=== PATIENT | male | born 1950 | race African-American/Black ===

== ENCOUNTER 2023-06-10 11:18 | Outpatient (CLI) | payer MEDICARE ==
--- NOTE | 2023-06-12 02:29 | Ultrasound Report ---
PROCEDURE: Soft Tissue Head or Neck INDICATIONS: MUTIPLE THYROID NODULES TECHNIQUE: Real-time scanning was performed of the thyroid gland, with image documentation. COMPARISON: None FINDINGS: Right: Thyroid lobe measures 6.0 x 2.3 x 2.1 cm, and is homogeneous in echotexture. Left: Thyroid lobe measures 5.5 x 2.3 x 1 point cm, and is homogenous in echotexture. Isthmus: 0.6 cm thick. Nodule number: One Location: Left inferior thyroid gland Size: 0.4 x 0.8 x 0.6 cm. Composition: Solid (2 points). Echogenicity: Hypoechoic (2 points). Shape: wider than tall (0 points). Margins: Smooth (0 points). Echogenic foci: None (0 points). Total points: 4 ACR TI-RADS category: TI-RADS 4: Moderately suspicious. IMPRESSION: Bilaterally enlarged thyroid gland. Left inferior 0.8 cm moderately suspicious nodule. R ecommend imaging follow-up as below. ACR TI-RADS definitions and recommendations: TI-RADS 1 (benign): 0 points. FNA not needed. TI-RADS 2 (not suspicious): 2 points. FNA not needed. TI-RADS 3 (mildly suspicious): 3 points. "FNA if 2.5 cm or larger, follow up if 1.5 cm or larger (at 1, 3, and 5 years). TI-RADS 4 (moderately suspicious): 4-6 points. "FNA if 1.5 cm or larger, follow up if 1 cm or larger (at 1, 2, 3, and 5 years). TI-RADS 5 (highly suspicious): 7 points or more. "FNA if 1 cm or larger, follow up if 0.5 cm or larger (every year for 5 years). Reviewed by: Sara Viera MD on 06/12/2023 2:27 AM PST Approved by: Sara Viera MD on 06/12/2023 2:27 AM PST Station ID: [id number]
== END 2023-06-10 11:19 | disposition home or self-care (01) ==
LOC: DI 11:18
PROVIDERS: ATTEND Physician Assistant
DX: E04.1 Nontoxic single thyroid nodule (principal)

== ENCOUNTER 2023-06-27 10:26 | Outpatient (CLI) | payer MEDICARE ==
--- NOTE | 2023-06-27 16:01 | XRAY Report ---
PROCEDURE: Lumbar Spine 2-3V INDICATIONS: LOW BACK PAIN TECHNIQUE: 3 views of the lumbar spine were acquired. COMPARISON: None. FINDINGS: Bones: 5 tyb-opn-hwzczvu vertebrae are present. There is 7.5 mm anterolisthesis of L4 on L5 and 1.3 cm anterolisthesis of L5 on S1. Mild degenerative endplate changes and bilateral facet arthrosis at L3-4 through L5-S1 levels are also seen.. No vertebral body compression fractures. No suspicious [place] lesions. There is prior bilateral total hip arthroplasty. Soft tissues: Overlying bowel gas pattern is normal. No suspicious soft tissue calcifications. 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 No acute compression fracture. Reviewed by: Juan Tirado MD on 06/27/2023 4:00 PM PST Approved by: Juan Tirado MD on 06/27/2023 4:00 PM PST Station ID: [id number]
== END 2023-06-27 10:27 | disposition home or self-care (01) ==
LOC: DI.N 10:26
PROVIDERS: ATTEND Physician Assistant
DX: M51.36 Other intervertebral disc degeneration, lumbar region (principal); M43.16 Spondylolisthesis, lumbar region

== ENCOUNTER 2023-07-21 14:56 | Outpatient (CLI) | payer MEDICARE ==
--- NOTE | 2023-07-21 15:59 | Sleep Patient Instructions ---
Sleep Center Visit Summary - Patient Visit Information Reason for Visit: Initial consult for evaluation of sleep disordered breathing and other sleep issues. - Patient Instructions Instructions Attached: Sleep Study Additional Instructions: You will be completing a sleep study, either an in-lab polysomnography (PSG) or home sleep study (HST). You will follow-up in the sleep care office after the sleep study is completed to hear the results and talk about therapy, if needed. You will be called by our office staff to schedule this appointment, but you may contact us with any questions. - Clinic Information Contact: [facility] [address] [place] [address] [email or web address] T: [phone]
--- NOTE | 2023-07-21 16:04 | SLEEP CARE CONSULTATION ---
Information from patient questionnaire entered by Lina Dickens. I have reviewed and concur with the information entered by Lina Dickens. This document represents the service I personally performed and the decisions made by me, Evy Wilkinson ARNP. History of Present Illness Service Date and Time: 07/21/2023 1456 Reason for Visit: New patient, Previously diagnosed sleep apnea Date of Onset: OVER 20YRS Usual bedtime: BETWEEN 9-10PM Time it takes to fall asleep: 10MIN Snores at night: Yes Observed to quit breathing while asleep: Yes Sleeps alone due to snoring: No Number of times waking at night: 2 Reasons for waking at night: reports: Choking, Bathroom, Other (UNKNOWN). denies: Snoring, Gasping for air Toss, Turn, or Twitch while sleeping: Yes (a little bit) Recalls having dreams: Yes Usually gets out of bed at: 8-9 AM Feels refreshed in the morning: Yes (sometimes) Morning headache: Yes (seldom; only in last couple weeks) Sleepy or fatigued during the day: Yes Ever fallen asleep while driving: Yes (drowsy driving, not frequent, seldom) Takes day naps: Yes (very seldom) Dreams during day naps: No Prior sleep studies: Yes Additional HPI information: I had the pleasure of seeing PATO CHOWDARY today regarding the possibility of him having a sleep disorder. His current complaints are snoring, observed pauses in breathing and unrefreshed sleep. He says he used to have a CPAP machine for sleep apnea many years ago, 2006?. He has not been using a PAP machine for many years. He has had people comment that he snores very loudly and keepd them up at night. He has also been told by an ex- that he stopped breathing at night too. He says he has woke up rarely with choking feeling but not gasping for air. He does not always feel rested in the morning but he rarely takes naps in the daytime. He comes in to try and improve his overall health. - Parasomnia Symptoms Ever been unable to move upon waking from sleep: No Walks in sleep: No Talks in sleep: No Ever acted out dreams in sleep: No Ever felt weak in the knees when startled or emotional: No Bothered by creepy, crawly, restless sensations in legs: No Problems with memory or concentration: Yes (sometimes memory) Subjective Initial [place] Sleepiness Scale score: 11 (07/21/23) Past Medical History Past Medical History: reports: Hypertension, Claustrophobia, Arthritis, Anxiety, GERD Social History The patient's occupation is a RE. Patient is and lives in [place]. Have you smoked in the past 12 months: No Alcohol use: Yes Alcohol amount and frequency: occasionally Caffeine use: No Family History Family history of sleep disordered breathing: Yes Family Hx Sleep Apnea: Father: Snoring, Sleep apnea - Untreated Allergies and Home Medications Known drug allergies: Yes ( LISTED) Drug allergies reviewed: Yes Home medication list reviewed: Yes Allergy and home medication list: Allergies meperidine [From Demerol] Allergy (Verified 07/21/23 15:13) strawberry Allergy (Verified 07/21/23 15:13) Home Medications Ascorbic Acid [Vitamin C] See Rx Instructions .ROUTE .COMPLEX 07/21/23 [History] Atenolol [Tenormin] See Rx Instructions .ROUTE .COMPLEX 07/21/23 [History] Celecoxib See Rx Instructions .ROUTE .COMPLEX 07/21/23 [History] Cholecalciferol (Vitamin D3) [Vitamin D3] See Rx Instructions .ROUTE .COMPLEX 07/21/23 [History] Lansoprazole [Prevacid] See Rx Instructions .ROUTE .COMPLEX 07/21/23 [History] Multivitamin See Rx Instructions .ROUTE .COMPLEX 07/21/23 [History] Om3/Dha/Epa/Cod Liver Oil/A/D3 [Cod Liver Oil Softgel] See Rx Instructions .ROUTE .COMPLEX 07/21/23 [History] Ubidecarenone [Co Q-10] See Rx Instructions .ROUTE .COMPLEX 07/21/23 [History] Vitamin B Complex See Rx Instructions .ROUTE .COMPLEX 07/21/23 [History] lisinopriL [Zestril] See Rx Instructions .ROUTE .COMPLEX 07/21/23 [History] Review of Systems Weight gain over past 5 years: 10 Weight loss over past 5 years: 35 Cardiovascular: reports: high blood pressure, leg or foot swelling Respiratory: denies: shortness of breath Gastrointestinal: reports: heartburn Urinary: reports: urgency Neurological: reports: headaches Psychiatric: reports: anxiety, claustrophobia. denies: Attention Deficit Hyperactivity Ear/Nose/Throat: reports: dry mouth/throat. denies: tonsillectomy Endocrine: reports: increased urination Musculoskeletal: reports: neck pain, back pain Immunologic: reports: allergies to food or environment Physical Exam Vital signs obtained and entered by: LINA Hdz MA Blood Pressure: 158/100 (RIGHT ARM) Cuff size: regular Heart Rate: 57 O2 Saturation: 98 Height: 6 ft 1 in Weight: 262 lb 9.6 oz Body Mass Index: 34.6 BMI Classification: Obese Neck circumference: 17.5 Mouth and throat: narrow oropharynx Soft palate: long Hard palate: normal Uvula: long, edematous Uvula visualization: 25% Mallampati Class III Tongue: enlarged in size with teeth kahn on lateral edges Tonsils: small Neck: normal w/o lymphadenopathy or thyromegaly Heart: regular rate and rhythm Lungs: clear bilaterally Impression and Plan 1. Suspected Obstructive Sleep Apnea-Hypopnea Syndrome, as previously diagnosed and suggested by a history of loud and irregular snoring, observed cessation of breath while asleep, gasping or choking in sleep, unrefreshed sleep, and excessive daytime sleepiness. Narrow oropharynx and obesity are common predisposing factors for obstructive sleep apnea-hypopnea syndrome. I recommend proceeding to polysomnography to confirm the diagnosis and to assess severity. If the patient has significant sleep disordered breathing, a manual CPAP titration study will also be performed to find the optimal treatment pressure. I informed the patient of what the sleep studies involve and after some discussion, obtained agreement to proceed. The pathophysiology of obstructive sleep apnea-hypopnea syndrome was discussed with the patient and health risks of cardiovascular and cerebrovascular disease if not treated. Risks of drowsy driving discussed in detail and patient advised to avoid long distance driving and to meat puller at the first sign of drowsiness. Patient agreed to plan. * Schedule polysomnography +- manual CPAP titration study and return in 1-2 weeks after the study to discuss result and initiate therapy. * Avoid long distance driving or driving when feeling sleepy. * Avoid alcohol, sedative and muscle relaxant around bedtime. * Attempt to lose weight. * Review instructions provided by trained office staff on how to prepare for the sleep study. * Return for follow-up after sleep study completed. Counseling Topics: Weight loss health impact Plan: PSG/HST Visit Type: In Office Time Spent with Patient (minutes): 31 Provider Statement: I spent 100% of the Face to Face Visit with the patient with greater than 50% spent counseling the patient and coordination of care.
[2023-07-21 16:07] VITALS: BP 158/100; O2SAT 98
== END 2023-07-21 14:57 | disposition home or self-care (01) ==
LOC: SC 14:56
PROVIDERS: ATTEND Nurse Practitioner Family
DX: G47.10 Hypersomnia, unspecified (principal); R06.83 Snoring; G47.8 Other sleep disorders; R06.81 Apnea, not elsewhere classified; I10 Essential (primary) hypertension; E66.9 Obesity, unspecified; Z68.34 Body mass index [BMI] 34.0-34.9, adult
CPT/HCPCS: 99203; G0463; 99212

== ENCOUNTER 2023-08-08 20:18 | Outpatient (CLI) | payer MEDICARE | END 2023-08-08 20:19 | disposition home or self-care (01) | LOC: SC 20:18 | PROVIDERS: ATTEND Nurse Practitioner Family | DX: G47.33 Obstructive sleep apnea (adult) (pediatric) (principal); I10 Essential (primary) hypertension | CPT/HCPCS: 95810 ==

== ENCOUNTER 2023-08-22 09:38 | Outpatient (CLI) | payer MEDICARE ==
--- NOTE | 2023-08-22 10:02 | Sleep Patient Instructions ---
Sleep Center Visit Summary - Patient Visit Information Reason for Visit: Sleep study follow-up - Patient Instructions Instructions Attached: CPAP Additional Instructions: You will be completing a titration sleep study in our sleep lab where you will b e sleeping with the CPAP machine on and we will be adjusting your pressures to find your optimal pressure settings. Once we have your results back, we will call you and schedule a follow up to go over the results. You will be called by our office staff to schedule your follow up, but you may contact us with any questions or issue as needed. - Clinic Information Contact: [facility] [address] [place] [address] [email or web address] T: [phone]
--- NOTE | 2023-08-22 10:07 | SLEEP CARE CONSULTATION ---
Information from patient questionnaire entered by Lina Dickens. I have reviewed and concur with the information entered by Lina Dickens. This document represents the service I personally performed and the decisions made by , Evy Wilkinson ARNP. History of Present Illness Service Date and Time: 08/22/2023 0938 Initial [place] Sleepiness Scale score: 11 (07/21/23) Current [place] Sleepiness Scale score: 6 Additional HPI information: PATO CHOWDARY returns for follow up and results of the recently performed polysomnography. The sleep study showed severe obstructive sleep apnea with an average AHI of 46.9 and zhanna oxygen saturation of 81%. I explained the pathophysiology behind obstructive sleep apnea. We then spent quite a bit of time discussing different treatment options. For mild obstructive sleep apnea, surgery and oral appliance are alternatives to nasal CPAP therapy but in moderate or severe cases, nasal CPAP is the most effective and reliable treatment. I reviewed the impact of weight changes on sleep apnea and strongly recommended losing weight. After some discussion, the patient opted to go with the nasal CPAP therapy. A manual titration study will be ordered to find optimal pressure with office adjustments. Patient counseled not drink alcohol less than 4 hours before bedtime as it can increase snoring and apnea. Patient was cautioned about risks of drowsy driving until sleepiness symptoms resolve. Patient denies drowsy driving. Sleep Study - Results Type of Sleep Study: Polysomnography (COMPLETED 08/08/23) Prior sleep studies: Yes Polysomnography/Home Sleep Study results: IMPRESSION: The quality of the study is good. The patient had reduced sleep efficiency due to prolonged awakening in the middle of the night. The sleep architecture was abnormal for sleep fragmentation and reduced amount of time spent in slow wave sleep (N3). Respiratory monitoring showed severe obstructive sleep apneahypopnea (AHI = 46.9) associated with frequent arousals, oxyhemoglobin desaturation and mild hypoxia (zhanna oxygen saturation of 81%). The respiratory events occurred independently of sleep stage and body position (supine AHI = 50.5; non-supine = 39.28). Snore was moderate to loud in intensity. There was no significant periodic leg movement of sleep. Cardiac rhythm was normal sinus rhythm without significant arrhythmia. No abnormal behavior (parasomnia) observed during the night. Allergies and Home Medications Known drug allergies: Yes (as listed) Drug allergies reviewed: Yes Home medication list reviewed: Yes (no changes) Allergy and home medication list: Allergies meperidine [From Demerol] Allergy (Verified 08/18/23 11:56) strawberry Allergy (Verified 08/18/23 11:56) Review of Systems Review of systems same as previous: Yes (no changes) Physical Exam Vital signs obtained and entered by: EVY CROCKER Blood Pressure: 150/105 (has BP meds this morning) Cuff size: regular (left arm) Heart Rate: 58 O2 Saturation: 99 Height: 6 ft 1 in Weight: 262 lb 3.2 oz Body Mass Index: 34.6 BMI Classification: Obese Impression and Plan 1. Obstructive Sleep Apnea-Hypopnea Syndrome, severe, with lowest oxygen saturation of 81%. Obviously this is the cause of the patients symptoms of unrefreshed sleep, and excessive daytime sleepiness. Positive pressure therapy could benefit hypertension, anxiety and gastric reflux. As mentioned above, the patient will be started on nasal autoCPAP therapy. A manual titration study will be completed to find optimal treatment pressure with office adjustments. Compliance guidelines also reviewed. 2. Hypoxemia, mild, with a zhanna oxygen saturation of 81% and 1.7 minutes spent under 90%. The baseline oxygen saturation was normal with an average oxygen saturation of 95%. 3. Obesity, unspecified. Currently patients BMI is 34.6. Obesity increases the risk of apnea, CPAP pressure requirements and overall health risks especially cardiovascular and diabetes. Thus patient is advised to lose weight. 4. Elevated blood pressure in patient with hypertension. His blood pressure was 150/105 taken manually. He was feeling well today. He said he took his medication this morning. He is working with his primary doctor on finding right blood pressure medication combinations to control his blood pressure. I advised him to follow up with them as needed. He voiced understanding. * Titration study * Follow up with PCP for elevated BP * Attempt to lose weight. * Avoid alcohol consumption near bedtime. * Avoid supine sleep until using CPAP. * The patient is again cautioned about driving until sleepiness completely resolves. * Return after titration study Counseling Topics: Weight loss health impact Follow up with Sleep Care in: other (after titration study) Follow up with: PCP Follow up recommended for: High blood pressure Plan: Titration study Visit Type: In Office Time Spent with Patient (minutes): 21 Provider Statement: I spent 100% of the Face to Face Visit with the patient with greater than 50% spent counseling the patient and coordination of care.
[2023-08-22 10:08] VITALS: BP 150/105; O2SAT 99
== END 2023-08-22 09:39 | disposition home or self-care (01) ==
LOC: SC 09:38
PROVIDERS: ATTEND Nurse Practitioner Family
DX: G47.33 Obstructive sleep apnea (adult) (pediatric) (principal); E66.9 Obesity, unspecified; Z68.34 Body mass index [BMI] 34.0-34.9, adult; I10 Essential (primary) hypertension
CPT/HCPCS: 99213; G0463; 99212

== ENCOUNTER 2023-09-29 11:26 | Outpatient (CLI) | payer MEDICARE ==
--- NOTE | 2023-09-29 11:47 | Sleep Patient Instructions ---
Sleep Center Visit Summary - Patient Visit Information Reason for Visit: Titration study follow-up - Patient Instructions Instructions Attached: CPAP Additional Instructions: You are being started on CPAP therapy with pressure setting at 10 cmH2O. You will need to call the sleep care office to set up your follow up once you have your CPAP machine to check compliance and response to therapy at that time. You may call the office with any concerns about pressure feeling too low or too much for adjustment, if needed. You should contact DME supplier for any questions or concerns about mask or equipment. Please call office to schedule a follow up appointment in the sleep care office one month after obtaining new device. - Clinic Information Contact: [facility] [address] [place] [address] [email or web address] T: [phone]
--- NOTE | 2023-09-29 11:52 | SLEEP CARE CONSULTATION ---
Information from patient questionnaire entered by Lina Dickens. I have reviewed and concur with the information entered by Lina Dickens. This document represents the service I personally performed and the decisions made by , Evy Wilkinson ARNP. History of Present Illness Service Date and Time: 09/29/20231125 Initial [place] Sleepiness Scale score: 11 (07/21/23) Current [place] Sleepiness Scale score: 8 (09/29/23) Additional HPI information: PATO CHOWDARY returns for follow up of a manual CPAP titration study performed on 09/18/23. Previous study done on 08/08/23 showed severe obstructive sleep apnea with AHI 46.9. The patient was informed of the following polysomnography findings: CPAP was initiated at 8 cmH2O and titrated up to 13 cmH2O. CPAP at 10 cmH2O appeared to be optimal (AHI of 0 per hour on the pressure). There was supine REM sleep on the pressure. Oxygen saturation was normal throughout the night. Lower CPAP settings appeared adequate as well. The patient tolerated the positive airway pressure therapy well. I explained how CPAP machine works and what to expect when using the machine. Using CPAP every night in order to get used to it was emphasized. Patient advised to put CPAP mask on before getting into bed so as not to fall asleep without CPAP. To assist acclimation to CPAP use, it could also be used for a short time during day while reading or watching TV. The patient was instructed to call the CPAP supplier to discuss any mechanical problem that may occur. If the mask given is uncomfortable or is difficult to keep on through the night even with adjustment, contact the CPAP supplier as many will replace with another mask style if notified before 30 days. If snoring or perceives is not getting enough air or too much air from the machine, notify this office. Patient does not drink alcohol. Patient was cautioned about risks of drowsy driving until sleepiness symptoms resolve. Patient denies drowsy driving. Sleep Study - Results Type of Sleep Study: Polysomnography (COMPLETED 08/08/23 TITRATION COMPLETED 09/18/23) Prior sleep studies: Yes Polysomnography/Home Sleep Study results: IMPRESSION: The quality of the study is good. CPAP was initiated at 8 cmH2O and titrated up to 13 cmH2O. CPAP at 10 cmH2O appeared to be optimal (AHI of 0 per hour on the pressure). There was supine REM sleep on the pressure. Oxygen saturation was normal throughout the night. Lower CPAP settings appeared adequate as well. The patient tolerated the positive airway pressure therapy well. The patients sleep efficiency was slightly reduced due to race relations adviser awakening. Except for mild sleep fragmentation, the sleep architecture was normal. There was no significant periodic leg movement of sleep. Cardiac rhythm was normal sinus rhythm without significant arrhythmia. No abnormal behavior (parasomnia) observed during the night. CONCLUSIONS and RECOMMENDATIONS: 1. Obstructive sleep apnea-hypopnea (ICD-10 G47.33), severe (AHI was 46.9), adequately controlled with CPAP at 10 cmH2O. CPAP therapy is, therefore, recommended at the pressure setting. AutoCPAP set between 6 and 12 cmH20 is also appropriate. Mask used was a RespirGeodynamicss DreamWear nasal cushion mask size large. With BMI of 34.6 Kg/M2 , weight loss is also recommended Allergies and Home Medications Known drug allergies: Yes (as listed) Drug allergies reviewed: Yes Home medication list reviewed: Yes (no changes) Allergy and home medication list: Allergies meperidine [From Demerol] Allergy (Verified 08/18/23 11:56) strawberry Allergy (Verified 08/18/23 11:56) Review of Systems Review of systems same as previous: Yes (no changes) Physical Exam Vital signs obtained and entered by: Lina Hdz MA Blood Pressure: 155/94 (RIGHT ARM) Cuff size: regular Heart Rate: 66 O2 Saturation: 97 Height: 6 ft 1 in Weight: 268 lb 3.2 oz Body Mass Index: 35.4 BMI Classification: Obese Impression and Plan 1. Obstructive Sleep Apnea-Hypopnea Syndrome, severe. He returns to office after titration study to find optimal pressure. Positive pressure therapy could benefit hypertension, anxiety and gastric reflux. His optimal pressure was found to be 10 cmH2O with average AHI of 0 per hour on that pressure, 6-12 was also noted to be appropriate. We did get supine REM sleep on the pressure and his oxygen sats were normal throughout the night. The patient will be started on nasal autoCPAP therapy with pressure set at 10 cmH2O. Compliance guidelines also reviewed. A copy of compliance guidelines will be given for reference at check out. He will follow up for compliance visit a month after obtaining new CPAP. 2. Obesity, unspecified. Currently patients BMI is 35.4. Obesity increases the risk of apnea, CPAP pressure requirements and overall health risks especially cardiovascular and diabetes. Thus patient is advised to lose weight. * Nasal auto CPAP therapy, pressure at 10 cm H2O. * Attempt to lose weight. * Avoid alcohol consumption near bedtime. * Avoid supine sleep until using CPAP. * The patient is again cautioned about driving until sleepiness completely resolves. * Return one month after CPAP obtained. I will assess response to therapy and compliance at that time. Counseling Topics: Weight loss health impact Prescriptions: Auto CPAP Plan: CPAP setup and compliance follow up Visit Type: In Office Time Spent with Patient (minutes): 20 Provider Statement: I spent 100% of the Face to Face Visit with the patient with greater than 50% spent counseling the patient and coordination of care.
[2023-09-29 12:01] VITALS: BP 155/94; O2SAT 97
== END 2023-09-29 11:27 | disposition home or self-care (01) ==
LOC: SC 11:26
PROVIDERS: ATTEND Nurse Practitioner Family
DX: G47.33 Obstructive sleep apnea (adult) (pediatric) (principal); E66.9 Obesity, unspecified; Z68.35 Body mass index [BMI] 35.0-35.9, adult
CPT/HCPCS: 99213; G0463; 99212

== ENCOUNTER 2024-02-23 11:17 | Outpatient (CLI) | payer MEDICARE ==
--- NOTE | 2024-02-23 18:52 | XRAY Report ---
PROCEDURE: Foot 3+V LT INDICATIONS: PAIN IN LEFT FOOT TECHNIQUE: 3 views of the foot were acquired. COMPARISON: None. FINDINGS: No acute fracture or dislocation. Mild hallux valgus with lateralization of the hallux sesamoids. The Lisfranc interval is preserved on the nonweightbearing view. Round calcifications under the plantar arch in the distribution of the plantar fascia. No osseous erosions. IMPRESSION: Small calcifications in the distribution of the plantar fascia, which are nonspecific but can be seen with plantar fasciitis. Otherwise, no acute fracture or dislocation of the left foot. Reviewed by: José Manuel Crook MD on 02/23/2024 6:20 PM PDT Approved by: José Manuel Crook MD on 02/23/2024 6:20 PM PDT Station ID: [id number]
== END 2024-02-23 11:18 | disposition home or self-care (01) ==
LOC: DI.N 11:17
PROVIDERS: ATTEND Student in an Organized Health Care Education/Training Program
DX: M79.672 Pain in left foot (principal)